=== PATIENT | male | born 1980 | race Two or more races ===

== ENCOUNTER 2022-07-17 09:38 | Emergency (ER) | payer SELFPAY ==
[~2022-07-17] VITALS: Ht 167.6 cm; Wt 79.4 kg
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
[2022-07-17] MEDS ORDERED: IV LR 1000 ML 1,000 ML IV ONE (10:00)
--- NOTE | 2022-07-17 10:00 | NUR ---
placed on room air , o2sat 100%
[2022-07-17 10:02] LABS: ABG BASE EXCESS 2.2 mmol/L; ABG PCO2 42.5 mmHg (35.0-45.0); ABG PH 7.421 (7.350-7.450); ABG PO2 86.5 mmHg (75.0-100.0); COHb 1.9 % (0.5-1.5); MetHb 0.1 % (0.0-1.5); O2Hb 94.4 % (94.0-97.0); SITE, ABG Right Brachial; VENT MODE, BG ROOM AIR
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
--- NOTE | 2022-07-17 13:42 | NUR ---
IV removed. Catheter intact and site benign. Pressure and 4x4 applied to site. No bleeding noted.
--- NOTE | 2022-07-17 13:44 | NUR ---
Patient discharged to home in stable condition. bus pass and shoes provided to pt Written and verbal after care instructions given. Patient verbalizes understanding of instruction.
[2022-07-17 13:45] VITALS: BP 136/86
== END 2022-07-17 13:46 | disposition home or self-care (01) ==
LOC: ER 10:13
DX: T59.811A Toxic effect of smoke, accidental (unintentional), initial encounter (principal); Y92.89 Other specified places as the place of occurrence of the external cause
CPT/HCPCS: 99284; 96360; 71045; 36600; J7120 ×2